=== PATIENT | female | born 1955 | race Caucasian/White ===

== ENCOUNTER 2018-04-21 08:44 | Inpatient (IN) | payer OTHER ==
[~2018-04-21 08:44] MED LIST: CA CHLORIDE 10% 10 ML SYRINGE; LIDOCAINE 2% (SDV) 5 ML INJ; METOCLOPRAMIDE 10 MG INJ; METOPROLOL 5 MG INJ; NA BICARBONATE 8.4% 50 ML SYG; ROCURONIUM 50 MG INJ; SUCCINYLCHOLINE CHLORIDE 100 MG/5 ML SYG IV
[2018-04-21] MEDS ORDERED: FENTAnyl 50 MCG/ML VIAL (10:01)
[2018-04-21] MEDS ORDERED: MIDAZOLAM 1 MG/ML 2 ML INJ (10:01)
[2018-04-21] MEDS ORDERED: CEFAZOLIN 1 GM INJ (10:03)
[2018-04-21] MEDS ORDERED: ONDANSETRON 4 MG INJ (10:06)
[2018-04-21] MEDS ORDERED: PROPOFOL 20 ML (10:26)
[2018-04-21] MEDS ORDERED: GELATIN SIZE 100 SPONGE (10:44)
[2018-04-21] MEDS ORDERED: THROMBIN 5000 UNIT VIAL (10:45)
[2018-04-21] MEDS ORDERED: ETOMIDATE 20 MG INJ (10:54)
[2018-04-21] MEDS ORDERED: hydrALAzine 20 MG INJ IV ×3 (11:00→18:00)
[2018-04-21] MEDS ORDERED: HYDROmorphONE 1 MG/5 ML IV SYRINGE IV ×2 (11:00)
[2018-04-21] MEDS ORDERED: DIPHENHYDRAMINE 50 MG INJ IV ×2 (11:00→16:00)
[2018-04-21] MEDS ORDERED: LABETALOL HCL 20MG INJ IV ×2 (11:00→16:00)
[2018-04-21] MEDS ORDERED: MIDAZOLAM 1 MG/ML 2 ML INJ IV ×2 (11:00→16:00)
[2018-04-21] MEDS ORDERED: FENTAnyl 50 MCG/ML VIAL IV ×4 (11:00→16:00)
[2018-04-21] MEDS ORDERED: ONDANSETRON 4 MG INJ IV ×3 (11:00→16:00)
[2018-04-21] MEDS ORDERED: LORAZEPAM 2 MG INJ IV ×2 (11:00→16:00)
[2018-04-21] MEDS ORDERED: MEPERIDINE 25 MG INJ IV ×2 (11:00→16:00)
[2018-04-21] MEDS ORDERED: LEVALBUTEROL (NEB) 1.25 MG/0.5 ML AMP HHN ×2 (11:00→16:00)
[2018-04-21] MEDS: HEPARIN 1000 UNITS/ML 10 ML INJ (12:19)
[2018-04-21] MEDS ORDERED: HEPARIN 1000 UNITS/ML 10 ML INJ ×3 (12:33→15:00)
[2018-04-21] MEDS: IOHEXOL 300MG/ML 150 ML BTL ×2 (12:35)
[2018-04-21] MEDS ORDERED: hydrALAzine 20 MG INJ ×2 (13:04→15:42)
[2018-04-21] MEDS: IOHEXOL 300MG/ML 150 ML BTL INJ (13:14)
[2018-04-21] MEDS ORDERED: HYDROmorphONE 2 MG/ML SYG (13:28)
[2018-04-21] MEDS ORDERED: IOHEXOL 300MG/ML 30 ML BTL (14:58)
[2018-04-21] MEDS ORDERED: ACETAMINOPHEN 325 MG TAB PO (15:30)
[2018-04-21] MEDS ORDERED: SUGAMMADEX SODIUM 200 MG/2 ML VIAL IV (15:34)
[2018-04-21] MEDS ORDERED: LABETALOL HCL 20MG INJ (15:43)
[2018-04-21] MEDS ORDERED: HYDROmorphONE 0.5 MG/0.5 ML SYG IV ×3 (16:00)
[2018-04-21] MEDS ORDERED: IPRATROPIUM (NEB) 0.5 MG/2.5 ML AMP HHN (16:00)
[2018-04-21] MEDS ORDERED: METOPROLOL 5 MG INJ (16:04)
[2018-04-21] MEDS: METOPROLOL 5 MG INJ IV (16:05)
[2018-04-21 16:10] LABS: ADD MAN DIFF? NO
[2018-04-21 16:11] LABS: BASOPHILS % 0.2 % (0.0-2.0); EOSINOPHILS # 0.1 10^3/ul (0.0-0.5); EOSINOPHILS % 0.5 % (0.0-7.0); HEMATOCRIT 32.2 % (37.0-47.0); HEMOGLOBIN 10.6 g/dl (12.0-16.0); LYMPHOCYTES # 1.9 10^3/ul (0.8-2.9); MEAN CORPUSCULAR HEMOGLOBIN 29.5 pg (29.0-33.0); MEAN CORPUSCULAR HGB CONC 32.9 g/dl (32.0-37.0); MEAN CORPUSCULAR VOLUME 89.7 fl (82.0-101.0); MEAN PLATELET VOLUME 9.9 fl (7.4-10.4); MONOCYTE # 0.4 10^3/ul (0.3-0.9); MONOCYTES % 3.5 % (0.0-11.0); NEUTROPHIL # 7.6 10^3/ul (1.6-7.5); PLATELET COUNT 179 10^3/UL (140-415); RED BLOOD COUNT 3.59 10^6/ul (4.20-5.40); RED CELL DISTRIBUTION WIDTH 12.7 % (11.5-14.5)
[2018-04-21] MEDS: LABETALOL HCL 20MG INJ IV (16:16)
[2018-04-21] MEDS: SOD CHLORIDE 0.9% 1,000 ML IV (16:18)
[2018-04-21 16:29] LABS: ANION GAP 6 (5-13); BLOOD UREA NITROGEN 12 mg/dl (7-20); CARBON DIOXIDE 23 mmol/L (21-31); CHLORIDE 112 mmol/L (97-110); CREATININE 0.57 mg/dl (0.44-1.00); Estimated GFR > 60 mL/min (>60); GLUCOSE 182 mg/dl (70-220); SODIUM 141 mmol/L (135-144)
[2018-04-21] MEDS: CEFAZOLIN 2 GM/50 ML (PMX) 50 ML IVPB (17:58)
[2018-04-21] MEDS ORDERED: DEXTROSE 50% 50 ML SYRINGE IV ×2 (18:00)
[2018-04-21] MEDS ORDERED: GLUCOSE GEL 15 GRAM TUBE PO ×2 (18:00)
[2018-04-21] MEDS ORDERED: GLUCAGON 1 MG INJ IM (18:00)
[2018-04-21] MEDS ORDERED: GLUCOSE GEL 15 GRAM TUBE BUCCAL (18:00)
[2018-04-21] MEDS: INSULIN ASPART [NOVOLOG] 3 ML PEN SC (19:00)
[2018-04-21] MEDS: HYDROCODONE/APAP (5/325) TAB PO (20:13)
[2018-04-21] MEDS: ZOLPIDEM 5 MG TAB PO (22:56)
[2018-04-22] MEDS: CEFAZOLIN 2 GM/50 ML (PMX) 50 ML IVPB ×2 (00:05→08:52)
[2018-04-22] MEDS: INSULIN ASPART [NOVOLOG] 3 ML PEN SC ×5 (00:07→20:34)
[2018-04-22 03:45] LABS: ADD MAN DIFF? NO
[2018-04-22 03:56] LABS: WHITE BLOOD COUNT 10.8 10^3/ul (4.8-10.8)
[2018-04-22 03:56] LABS: BASOPHILS % 0.1 % (0.0-2.0); HEMATOCRIT 28.9 % (37.0-47.0); HEMOGLOBIN 9.7 g/dl (12.0-16.0); LYMPHOCYTES # 0.9 10^3/ul (0.8-2.9); LYMPHOCYTES % 8.3 % (15.0-51.0); MEAN CORPUSCULAR HEMOGLOBIN 30.1 pg (29.0-33.0); MEAN CORPUSCULAR HGB CONC 33.6 g/dl (32.0-37.0); MEAN CORPUSCULAR VOLUME 89.8 fl (82.0-101.0); MEAN PLATELET VOLUME 9.6 fl (7.4-10.4); MONOCYTE # 0.6 10^3/ul (0.3-0.9); MONOCYTES % 5.4 % (0.0-11.0); NEUTROPHIL # 9.3 10^3/ul (1.6-7.5); NEUTROPHILS % 85.8 % (39.0-77.0); PLATELET COUNT 141 10^3/UL (140-415); RED BLOOD COUNT 3.22 10^6/ul (4.20-5.40); RED CELL DISTRIBUTION WIDTH 12.8 % (11.5-14.5)
[2018-04-22 04:06] LABS: MAGNESIUM 1.5 mg/dl (1.7-2.5)
[2018-04-22 04:07] LABS: ANION GAP 9 (5-13); BLOOD UREA NITROGEN 11 mg/dl (7-20); CALCIUM 9.6 mg/dl (8.4-10.2); CARBON DIOXIDE 23 mmol/L (21-31); CHLORIDE 109 mmol/L (97-110); CREATININE 0.64 mg/dl (0.44-1.00); Estimated GFR > 60 mL/min (>60); GLUCOSE 185 mg/dl (70-220); POTASSIUM 3.6 mmol/L (3.5-5.1); SODIUM 141 mmol/L (135-144)
[2018-04-22 04:19] LABS: CREATINE KINASE 41 IU/L (23-200)
[2018-04-22 04:32] LABS: CK INDEX 1.3; CK-MB 0.52 ng/ml (0.0-2.4); TROPONIN-I 0.024 ng/ml (0.000-0.120)
[2018-04-22] MEDS ORDERED: AMIODARONE 150MG/D5W BOLUS 100 ML (04:36)
[2018-04-22] MEDS: AMIODARONE 150MG/D5W BOLUS 100 ML IV (04:42)
[2018-04-22] MEDS ORDERED: morphine SULFATE (PF) 2 ML (04:49)
[2018-04-22] MEDS: POTASSIUM CHLORIDE 100 ML IVPB ×3 (04:51→06:56)
[2018-04-22] MEDS: MAGNESIUM SULFATE 2 GM/50 ML 50 ML IVPB (04:51)
[2018-04-22] MEDS ORDERED: NORepinephrine 8MG/250 ML (PMX 250 ML (04:53)
[2018-04-22] MEDS ORDERED: METOPROLOL 5 MG INJ (04:56)
[2018-04-22] MEDS ORDERED: NITROGLYCERIN (SL) 0.4 MG TAB SL (05:00)
[2018-04-22] MEDS: morphine SULFATE/PF (2 MG/2 ML) SYG IV ×3 (05:03→17:14)
[2018-04-22] MEDS ORDERED: ADENOSINE 3 MG/ML SYRINGE IV (05:06)
[2018-04-22] MEDS: METOPROLOL 5 MG INJ IV ×2 (05:12→05:59)
[2018-04-22] MEDS: AMIODARONE 900 MG in DEXTROSE 5% 482 ML IV (05:13)
[2018-04-22] MEDS ORDERED: NORepinephrine 8MG/250 ML (PMX 250 ML IV (05:30)
[2018-04-22] MEDS: SOD CHLORIDE 0.9% 1,000 ML IV ×5 (05:33→20:37)
[2018-04-22] MEDS: NITROGLYCERIN 2% 1 GM OINT PKT TD ×3 (06:00→22:00)
[2018-04-22] MEDS: ADENOSINE 6 MG INJ IV (06:05)
[2018-04-22] MEDS ORDERED: DILTIAZEM 25 MG INJ (06:14)
[2018-04-22] MEDS: DILTIAZEM 25 MG INJ IV (06:23)
[2018-04-22] MEDS: ENOXAPARIN 40 MG/0.4 ML SYG SC (06:26)
[2018-04-22] MEDS: DILTIAZEM-D5W 125MG/125ML DRIP 125 ML IV (06:56)
[2018-04-22] MEDS: morphine 2 MG INJ IV (08:13)
[2018-04-22] MEDS: DIGOXIN 500 MCG INJ IV (08:52)
[2018-04-22 08:57] LABS: CREATINE KINASE 54 IU/L (23-200)
[2018-04-22] MEDS: POTASSIUM CHLORIDE (SR) 20 MEQ TAB PO (09:10)
[2018-04-22] MEDS: DOCUSATE SODIUM 100 MG CAP PO ×2 (09:10→20:30)
[2018-04-22 09:11] LABS: CK INDEX 1.8; CK-MB 0.97 ng/ml (0.0-2.4)
[2018-04-22 09:25] LABS: MAGNESIUM 1.5 mg/dl (1.7-2.5)
[2018-04-22] MEDS: MAGNESIUM SULFATE 4 GM/100 ML 100 ML IVPB (10:31)
[2018-04-22] MEDS: INSULIN GLARGINE [LANTus] (100 UNITS/ML) SYG SC (10:44)
[2018-04-22] MEDS: ASPIRIN 81 MG TAB PO (17:15)
[2018-04-22] MEDS: FAMOTIDINE 20 MG TAB PO (17:15)
[2018-04-22] MEDS: METOPROLOL 25 MG TAB PO ×2 (17:16→22:06)
[2018-04-22] MEDS: ZOLPIDEM 5 MG TAB PO (22:06)
[2018-04-23] MEDS: ACCU-CHEK XX (02:00)
[2018-04-23] MEDS ORDERED: NITROGLYCERIN 2% 1 GM OINT PKT TD (03:30)
[2018-04-23] MEDS: AMIODARONE 900 MG in DEXTROSE 5% 482 ML IV ×2 (03:31→05:57)
[2018-04-23] MEDS: ENOXAPARIN 40 MG/0.4 ML SYG SC (05:46)
[2018-04-23] MEDS: SOD CHLORIDE 0.9% 1,000 ML IV (06:36)
[2018-04-23] MEDS ORDERED: INSULIN GLARGINE [LANTus] (100 UNITS/ML) SYG SC (08:00)
[2018-04-23] MEDS: DOCUSATE SODIUM 100 MG CAP PO ×2 (08:04→21:00)
[2018-04-23] MEDS: ASPIRIN 81 MG TAB PO (09:16)
[2018-04-23] MEDS: FAMOTIDINE 20 MG TAB PO (09:17)
[2018-04-23] MEDS: METOPROLOL 25 MG TAB PO (09:17)
[2018-04-23] MEDS: INSULIN ASPART [NOVOLOG] 3 ML PEN SC ×4 (09:18→21:00)
[2018-04-23] MEDS: INSULIN GLARGINE [LANTus] (100 UNITS/ML) SYG SC (09:19)
[2018-04-23] MEDS: METOPROLOL 50 MG TAB PO ×3 (09:36→21:18)
[2018-04-23 11:34] LABS: ANION GAP 7 (5-13); BLOOD UREA NITROGEN 7 mg/dl (7-20); CALCIUM 8.5 mg/dl (8.4-10.2); CARBON DIOXIDE 25 mmol/L (21-31); CHLORIDE 104 mmol/L (97-110); CREATININE 0.56 mg/dl (0.44-1.00); Estimated GFR > 60 mL/min (>60); GLUCOSE 202 mg/dl (70-220); MAGNESIUM 2.2 mg/dl (1.7-2.5); POTASSIUM 3.7 mmol/L (3.5-5.1); SODIUM 136 mmol/L (135-144)
[2018-04-23] MEDS: AMIODARONE 200 MG TAB PO ×2 (12:51→21:18)
[2018-04-23] MEDS: POTASSIUM CHLORIDE (SR) 20 MEQ TAB PO (12:52)
[2018-04-23] MEDS ORDERED: METOPROLOL 25 MG TAB PO (21:00)
[2018-04-23] MEDS: ZOLPIDEM 5 MG TAB PO (23:49)
[2018-04-24] MEDS: ACCU-CHEK XX (02:00)
[2018-04-24] MEDS: METOPROLOL 50 MG TAB PO (06:24)
[2018-04-24] MEDS: ENOXAPARIN 40 MG/0.4 ML SYG SC (06:26)
[2018-04-24] MEDS: INSULIN ASPART [NOVOLOG] 3 ML PEN SC (07:55)
[2018-04-24] MEDS: DOCUSATE SODIUM 100 MG CAP PO (08:21)
[2018-04-24] MEDS: FAMOTIDINE 20 MG TAB PO (08:21)
[2018-04-24] MEDS: ASPIRIN 81 MG TAB PO (08:21)
[2018-04-24] MEDS: AMIODARONE 200 MG TAB PO (08:21)
[2018-04-24] MEDS: INSULIN GLARGINE [LANTus] (100 UNITS/ML) SYG SC (08:27)
== END 2018-04-24 11:34 | disposition home or self-care (01) | DRG 269 ==
LOC: REC 08:44 → TEL 04-23 18:31 → ICU 16:03
PROVIDERS: Surgery
PROC: 04V03DZ Restriction of Abdominal Aorta with Intraluminal Device, Percutaneous Approach (ICD-10-PCS; principal; 2018-04-21 10:30)
PROC: 047H3DZ Dilation of Right External Iliac Artery with Intraluminal Device, Percutaneous Approach (ICD-10-PCS; 2018-04-21 10:30)
PROC: 047E3DZ Dilation of Right Internal Iliac Artery with Intraluminal Device, Percutaneous Approach (ICD-10-PCS; 2018-04-21 10:30)
PROC: 047K3DZ Dilation of Right Femoral Artery with Intraluminal Device, Percutaneous Approach (ICD-10-PCS; 2018-04-21 10:30)
DX: I71.4 Abdominal aortic aneurysm, without rupture (principal); I48.92 Unspecified atrial flutter; I74.5 Embolism and thrombosis of iliac artery; I11.0 Hypertensive heart disease with heart failure; I50.9 Heart failure, unspecified; E78.5 Hyperlipidemia, unspecified; I25.10 Atherosclerotic heart disease of native coronary artery without angina pectoris; E11.40 Type 2 diabetes mellitus with diabetic neuropathy, unspecified; F32.9 Major depressive disorder, single episode, unspecified; F41.9 Anxiety disorder, unspecified; M19.90 Unspecified osteoarthritis, unspecified site; I73.9 Peripheral vascular disease, unspecified; R00.0 Tachycardia, unspecified; Z86.718 Personal history of other venous thrombosis and embolism; Z95.1 Presence of aortocoronary bypass graft; Z95.5 Presence of coronary angioplasty implant and graft
CPT/HCPCS: 75605; 80048; 82550; 82553; 82962; 83735; 84484; 85025; 86850; 86900; 86901; 87081; 93005; 93306